=== PATIENT | female | born 1960 | race American Indian/Alaskan Native ===

== ENCOUNTER 2017-03-08 01:56 | Emergency (ER) | payer SELFPAY ==
[2017-03-08] MEDS ORDERED: DUONEB 0.5 MG-3 MG/3 ML SOLN IH ONE ×3 (02:00→06:18)
[2017-03-08 03:12] LABS: Basophils % (Auto) 0.4 % (0.0-1.8); Eosinophils % (Auto) 5.8 % (0.0-4.3); Hemoglobin 12.6 gm/dl (10.1-14.3); Mean Corpuscular HGB Conc 32 % (30-34); Mean Corpuscular Volume 78 fl (79-97); Platelet Count 308 K/mm3 (140-440); Red Blood Count 5.03 M/mm3 (3.65-5.03); Red Cell Distribution Width 14.1 % (13.2-15.2); White Blood Count 8.4 K/mm3 (4.5-11.0)
[2017-03-08 03:13] LABS: Mean Corpuscular Hemoglobin 25 pg (28-32)
[2017-03-08 03:28] LABS: Anion Gap 19 mmol/L; BUN/Creatinine Ratio 7.14; Blood Urea Nitrogen 5 mg/dL (7-17); Calcium 8.8 mg/dL (8.4-10.2); Carbon Dioxide 25 mmol/L (22-30); Chloride 99.1 mmol/L (98-107); Glucose 114 mg/dL (65-100); Potassium 3.6 mmol/L (3.6-5.0); Sodium 139 mmol/L (137-145)
[2017-03-08] MEDS ORDERED: PROVENTIL IH ONE (07:15)
[2017-03-08] MEDS ORDERED: DELTASONE PO ONE (07:15)
--- NOTE | 2017-03-08 07:57 | Emergency Department Report ---
ED Shortness of Breath HPI - General Chief Complaint: Dyspnea/Respdistress Stated Complaint: TERESA/SOB Time Seen by Provider: 03/08/17 07:07 Source: patient Mode of arrival: Ambulatory Limitations: No Limitations - History of Present Illness MD Complaint: shortness of breath, cough -: Gradual Severity: mild Pain Scale: 1 Quality: dull, aching Consistency: intermittent Improves With: nothing Worsens With: nothing Known History Of: asthma, other (bronchitis) Context: recent URI, allergen exposure, smoke/fume exposure Associated Symptoms: cough Treatments Prior to Arrival: none - Related Data Home Oxygen Therapy: No Previous Rx's Medication Instructions Recorded Last Taken Type ALBUTEROL Inhaler [ProAir HFA 1 puff IH QID #1 inha 03/08/17 Unknown Rx Inhaler] predniSONE [Deltasone] 50 mg PO QDAY #5 tab 03/08/17 Unknown Rx Allergies Allergy/AdvReac Type Severity Reaction Status Date / Time No Known Allergies Allergy Verified 03/08/17 01:59 ED Review of Systems ROS: Stated complaint: TERESA/SOB Other details as noted in HPI Comment: All other systems reviewed and negative ED Past Medical Hx - Past Medical History Previous Medical History?: No - Surgical History Past Surgical History?: No - Social History Smoking Status: Never Smoker Substance Use Type: None - Medications Home Medications: Home Medications Medication Instructions Recorded Confirmed Last Taken Type ALBUTEROL Inhaler [ProAir HFA 1 puff IH QID #1 inha 03/08/17 Unknown Rx Inhaler] predniSONE [Deltasone] 50 mg PO QDAY #5 tab 03/08/17 Unknown Rx ED Physical Exam - General Limitations: No Limitations General appearance: alert, in no apparent distress - Head Head exam: Present: atraumatic, normocephalic - Eye Eye exam: Present: normal appearance - ENT ENT exam: Present: mucous membranes moist - Neck Neck exam: Present: normal inspection - Respiratory Respiratory exam: Present: wheezes, rhonchi, prolonged expiratory. Absent: respiratory distress, rales, stridor, chest wall tenderness, accessory muscle use, decreased breath sounds - Cardiovascular Cardiovascular Exam: Present: regular rate, normal rhythm. Absent: systolic murmur, diastolic murmur, rubs, gallop - GI/Abdominal GI/Abdominal exam: Present: soft, normal bowel sounds - Extremities Exam Extremities exam: Present: normal inspection - Back Exam Back exam: Present: normal inspection - Neurological Exam Neurological exam: Present: alert, oriented X3 - Psychiatric Psychiatric exam: Present: normal affect, normal mood - Skin Skin exam: Present: warm, dry, intact, normal color. Absent: rash ED Course Vital Signs 03/08/17 03/08/17 03/08/17 02:00 02:09 02:25 Temperature 98 F Pulse Rate 74 Pulse Rate [ 92 H 94 H Bilateral Throughout] Respiratory 16 Rate Respiratory 20 20 Rate [Bilateral Throughout] Blood Pressure 169/96 Blood Pressure [Left] O2 Sat by Pulse 96 Oximetry 03/08/17 06:10 Temperature Pulse Rate 84 Pulse Rate [ Bilateral Throughout] Respiratory 24 Rate Respiratory Rate [Bilateral Throughout] Blood Pressure Blood Pressure 149/90 [Left] O2 Sat by Pulse 97 Oximetry ED Medical Decision Making - Lab Data Result diagrams: 03/08/17 02:53 03/08/17 02:53 - Radiology Data Radiology results: image reviewed - Medical Decision Making patient doing well, better after she got 2 nebs treatment , VSS and normal , labs negative , cxr with no evidence of pneumonia, will treat with nebs and prednisone and proper follow up Critical care attestation.: If time is entered above; I have spent that time in minutes in the direct care of this critically ill patient, excluding procedure time. ED Disposition Clinical Impression: Bronchitis Disposition: [id number] TO HOME OR SELFCARE Is pt being admited?: No Does the pt Need Aspirin: No Condition: Good Instructions: Chronic Bronchitis (ED), Acute Bronchitis (ED) Prescriptions: ALBUTEROL Inhaler [ProAir HFA Inhaler] 1 puff IH QID #1 inha predniSONE [Deltasone] 50 mg PO QDAY #5 tab Referrals: PRIMARY CARE, [Primary Care Provider] - 3-5 Days Time of Disposition: 07:52
[2017-03-08] MEDS ORDERED: TYLENOL PO ONE (08:05)
--- NOTE | 2017-03-08 08:58 | XRay Report ---
ROUTINE CHEST, TWO VIEWS: HISTORY: Shortness of breath. No comparison. The lungs are mildly hyperinflated but clear. Heart size and pulmonary vascularity are at the upper limits of normal. No evidence for pneumonia, pleural effusion or pneumothorax. No acute bony abnormality appreciated. IMPRESSION: Mild hyperinflation. Borderline heart size.
[2017-03-08 09:05] VITALS: BP 121/71
== END 2017-03-08 09:04 | disposition home or self-care (01) ==
LOC: ED 01:56
DX: J40 Bronchitis, not specified as acute or chronic (principal)
CPT/HCPCS: 36415; 71020; 80048; 84484; 85025; 93005; 93010; 94640; 99284; J7512

== ENCOUNTER 2017-04-25 22:13 | Emergency (ER) | payer SELFPAY ==
[2017-04-25 22:55] VITALS: BP 160/106
[2017-04-25] MEDS ORDERED: DUONEB *Not for PRN Use IH ONE ×2 (23:02→23:57)
[2017-04-25 23:59] LABS: Basophils % (Auto) 0.5 % (0.0-1.8); Eosinophils % (Auto) 6.1 % (0.0-4.3); Hematocrit 40.8 % (30.3-42.9); Mean Corpuscular HGB Conc 32 % (30-34); Mean Corpuscular Volume 80 fl (79-97); Platelet Count 313 K/mm3 (140-440); Red Blood Count 5.12 M/mm3 (3.65-5.03); White Blood Count 9.5 K/mm3 (4.5-11.0)
[2017-04-26 00:07] LABS: Mean Corpuscular Hemoglobin 25 pg (28-32)
[2017-04-26 00:19] LABS: BUN/Creatinine Ratio 6.25; Blood Urea Nitrogen 5 mg/dL (7-17); Calcium 9.1 mg/dL (8.4-10.2); Carbon Dioxide 21 mmol/L (22-30); Chloride 99.9 mmol/L (98-107); Glucose 121 mg/dL (65-100); Potassium 3.2 mmol/L (3.6-5.0); Sodium 139 mmol/L (137-145)
[2017-04-26 00:37] LABS: Anion Gap 21 mmol/L
--- NOTE | 2017-04-26 08:32 | XRay Report ---
Chest 2 views: Compared to 03/08/17. History: Shortness of breath. Findings: Borderline cardiomegaly trachea is midline. No consolidation, pneumothorax or pleural effusion. Impression: No acute cardiopulmonary findings.
== END 2017-04-26 04:30 | disposition left against medical advice (07) ==
LOC: ED 22:13
DX: Z53.21 Procedure and treatment not carried out due to patient leaving prior to being seen by health care provider (principal)
CPT/HCPCS: 36415; 71020; 80048; 82805; 83735; 84484; 85025; 93005; 93010; 94640